=== PATIENT | female | born 1980 | race Caucasian/White ===

== ENCOUNTER 2017-01-20 14:34 | Emergency (ER) | payer BC ==
[2017-01-20 15:15] VITALS: RESP 16
--- NOTE | 2017-01-20 15:23 | UCPHY ---
H & P Patient Type: New Smoking Status: Former smoker Time Seen by Provider: 01/20/17 15:01 HPI/ROS: CHIEF COMPLAINT: Right flank and right upper quadrant pain HISTORY OF PRESENT ILLNESS: 37-year-old female with no thromboembolic disorder history complaining of 3 weeks of vague right back and flank pain, sometimes reproducible with range of motion sometimes not. Atraumatic. No rash or vesicles. Partially resolved with ibuprofen. In the past 1-2 days she has developed new onset right upper quadrant pain and dyspnea. No cough. No chest pain. No syncope or near syncope. No cough. No URI symptoms. No peripheral edema. She is a a nonsmoker, currently on Clomid fertility medication, unsure whether she is or not. She is attempting to get . PRIMARY CARE PROVIDER: no PCP, followed by an OBGYN at [facility] REVIEW OF SYSTEMS: A ten point review of systems was performed and is negative with the exception of the items mentioned in the HPI PAST MEDICAL & SURGICAL HISTORY: SOCIAL HISTORY: nonsmoker PHYSICAL EXAM (Prior to examination, patient consented to physical exam, hands were washed and my usual and customary physical exam procedures followed) 1) GENERAL: Well-developed, well-nourished, alert and oriented. Appears to be in no acute distress. 2) HEAD: Normocephalic, atraumatic 3) HEENT: Pupils equal, round, reactive to light bilaterally. Sclera anicteric. Nasopharynx, oropharynx, clear, no lesions. Ears bilaterally with normal tympanic membranes. 4) NECK: Full range of motion, no meningeal signs. 5) LUNGS: Clear auscultation bilaterally, no wheezes, no rhonchi, no retractions. 6) HEART: Regular rate and rhythm, no murmur, no heave, no gallop. 7) ABDOMEN: No guarding, positive McBurney's, negative Vences's, negative Rovsing's, negative peritoneal sign, 8) MUSCULOSKELETAL: Moving all extremities, no focal areas of tenderness, no obvious trauma. No peripheral edema or discoloration. 9) BACK: No CVA tenderness, no midline vertebral tenderness, no fluctuance, no step-off, no obvious trauma, no visual or palpable abnormality. 10) SKIN: No rash, no petechiae. 11) Psychiatric: Patient is oriented X 3, there is no agitation. DIFFERENTIAL DIAGNOSIS: in no particular include but limited to pyelonephritis , nephrolithiasis, cholecystitis, pulmonary embolus, lower lobe pneumonia (Rayne Love) Constitutional: Initial Vital Signs Temperature (C) 36.6 C 01/20/17 15:09 Heart Rate 90 01/20/17 15:09 Respiratory Rate 16 01/20/17 15:09 Blood Pressure 150/92 H 01/20/17 15:09 O2 Sat (%) 95 01/20/17 15:09 O2 Delivery Mode Room Air Allergies/Adverse Reactions: No Known Allergies Allergy (Unverified 01/20/17 15:15) Home Medications: Medication Instructions Recorded Clomid 01/20/17 Methocarbamol [Robaxin 750 mg (*)] 750 - 1,500 mg PO QID PRN #30 tab 01/20/17 MDM/Departure - MDM Diagnostics: Chest x-ray: Normal exception mild increased AP diameter by my interpretation A review of her labs reveals contaminated urine specimen, normal chemistries and lipase common negative HCG and minimal leukocytosis. (Con Leonardo) ED Course/Re-evaluation: Care turned over to Dr. Con Leonardo at 3:30 p.m. (Rayne Love) On my examination at 4:40 p.m. after results were back the patient has some right paraspinous lumbar tenderness that it also has right upper quadrant tenderness. She has negative straight leg raise bilaterally. She is able to bend for without much difficulty back extension causes more pain in the right low back. Neuro exam reveals no sensory or motor deficits in lower extremities. She maintains 2+ symmetric patellar DTRs bilaterally. Discussion: I think that this patient's back pain is musculoskeletal in etiology possible disc herniation without significant radiculopathy or low back strain. I counseled her regarding this. Because the right upper quadrant pain is unclear. In may be a spinal nerve this radiating around anteriorly. We ruled out hepatitis, cholecystitis pancreatitis with normal chemistries and LFTs making this very unlikely. No other concerning findings on her presentation currently. She is on Clomid and wonders if she may have ovarian cyst. I think this is unlikely unlikely source of pain given that her discomfort is in the right upper quadrant but encouraged her to follow up with her OBGYN. (Con Leonardo) - Depart Disposition: Home, Routine, Self-Care Clinical Impression: Right upper quadrant abdominal pain Low back pain Qualifiers: Chronicity: acute Back pain laterality: right Sciatica presence: without sciatica Qualified Code(s): M54.5 - Low back pain Condition: Good Instructions: Low Back Strain (ED) Additional Instructions: DX: Low back pain 2. Her right upper belly pain Plan: Ibuprofen 400-600 mg per 6 hours regularly for the next week then as needed. Methocarbamol muscle relaxants as needed. Tylenol in addition as needed for pain. No driving alcohol or work on methocarbamol Starts daily stretches prior to taking muscle relaxants and Vicodin in the morning. 3-5 minutes each of: "Butterfly stretch," "Sphinx stretch", "pigeon stretch", and hamstring stretch. Avoid lifting more than 5-10 pounds until symptoms improve. Call your primary care physician for a followup appointment in 3-7 days. Go to the emergency department for worsening of your symptoms despite the treatment plan. Prescriptions: Methocarbamol [Robaxin 750 mg (*)] 750 - 1,500 mg PO QID PRN #30 tab PRN Reason: Muscle Spasms Referrals: NONE *PRIMARY CARE P,. [Primary Care Provider] - As per Instructions - PQRS PQRS Measurement: n/a (Rayne Love)
[2017-01-20 15:28] LABS: COLOR YELLOW; LEUKOCYTE ESTERASE,URINE NEGATIVE (NEGATIVE); NITRITE,URINE NEGATIVE (NEGATIVE); PH,URINE 5.5 (5.0-7.5)
[2017-01-20 15:44] LABS: BACTERIA 2+ /hpf (NONE SEEN); MUCUS 3+ /lpf (NONE-1+); RBC,URINE NONE SEEN /hpf (0-3)
[2017-01-20 16:19] LABS: % IMMATURE GRANULYOCYTES 0.3 % (0.0-1.1); ABSOLUTE IMMATURE GRANULOCYTES 0.03 10^3/uL (0.00-0.10); ADD DIFF? NO; ADD MORPH? NO; ADD SCAN? NO; ATYPICAL LYMPHOCYTE FLAG 10 (0-99); FRAGMENT RBC FLAG 0 (0-99); HEMATOCRIT 43.7 % (38.0-47.0); LEFT SHIFT FLG 0 (0-99); LIPEMIA HEMOLYSIS FLAG 90 (0-99); MEAN CELL HEMOGLOBIN 28.9 pg (27.9-34.1); MEAN CELL HEMOGLOBIN CONCENTR. 34.3 g/dL (32.4-36.7); MEAN CELL VOLUME 84.2 fL (81.5-99.8); MEAN PLATELET VOLUME 9.6 fL (8.7-11.7); PLATELET CLUMPS FLAG 0 (0-99); PLATELET COUNT 289 10^3/uL (150-400); RED BLOOD CELL COUNT 5.19 10^6/uL (4.18-5.33); RED CELL DISTRIBUTION WIDTH 12.5 % (11.5-15.2)
[2017-01-20 16:32] LABS: ALANINE AMINOTRANSFERASE 49 IU/L (9-52); ALBUMIN 4.2 g/dL (3.5-5.0); ALKALINE PHOSPHATASE 73 IU/L (38-126); ANION GAP 16 mEq/L (8-16); ASPARTATE AMINOTRANSFERASE 25 IU/L (14-46); BILIRUBIN,TOTAL 0.5 mg/dL (0.1-1.4); BILIRUBIN-CONJUGATED 0.3 mg/dL (0.0-0.5); BILIRUBIN-UNCONJUGATED 0.2 mg/dL (0.0-1.1); CALCIUM 9.1 mg/dL (8.5-10.4); CARBON DIOXIDE 22 mEq/l (22-31); CHLORIDE 103 mEq/L (97-110); CREATININE 0.5 mg/dL (0.6-1.0); GLOMERULAR FILTRATION RATE > 60; GLUCOSE 80 mg/dL (70-100); SODIUM 141 mEq/L (134-144); TOTAL PROTEIN 8.4 g/dL (6.3-8.2)
[2017-01-20 17:22] VITALS: BP 134/89; PULSE 80; TEMP 98.8; O2SAT 94
== END 2017-01-20 17:23 | disposition home or self-care (01) ==
LOC: CED 14:34
DX: R10.11 Right upper quadrant pain (principal); M54.5 Low back pain
CPT/HCPCS: 71020-PO; 80048-PO; 80076-PO; 81003-PO; 81015-PO; 81025-PO; 83690-PO; 84703-PO; 85025-PO; 99203-PO; G0463-PO

== ENCOUNTER → 2018-01-05 | Outpatient (CLI) | payer OTHER | LOC: FIMAGING 14:06 | PROVIDERS: ATTEND Advanced Practice Midwife | DX: O09.521 Supervision of elderly multigravida, first trimester (principal); Z3A.12 12 weeks gestation of pregnancy ==

== ENCOUNTER 2018-07-12 19:11 | Observation (INO) | payer OTHER | END 2018-07-12 20:00 | disposition home or self-care (01) | LOC: FLD 19:11 | PROVIDERS: ADMIT Advanced Practice Midwife; ATTEND Advanced Practice Midwife | DX: Z34.83 Encounter for supervision of other normal pregnancy, third trimester (principal); Z3A.39 39 weeks gestation of pregnancy | CPT/HCPCS: 59025; G0378 ==

== ENCOUNTER 2018-07-13 03:01 | Inpatient (IN) | payer OTHER ==
[2018-07-13] MEDS ORDERED: EPSOM SALT 454 GM TP PRN (03:22)
[2018-07-13] MEDS ORDERED: LIDOCAINE 1% 300 MG/30 ML SDV SC PRN (03:22)
[2018-07-13] MEDS ORDERED: OXYTOCIN/RINGERS LACTATE 1,000 ML IV PRN (03:22)
[2018-07-13] MEDS ORDERED: MISOPROSTOL 200 MCG TAB PR PRN (03:22)
[2018-07-13] MEDS ORDERED: LR 1,000 ML IV PRN (03:22)
[2018-07-13] MEDS ORDERED: IBUPROFEN 600 MG TAB PO PRN (03:22)
[2018-07-13] MEDS ORDERED: TERBUTALINE SULFATE 1 MG/ML VIAL IV PRN (03:22)
[2018-07-13] MEDS ORDERED: OLIVE OIL 118 ML BTL MISC PRN (03:22)
[2018-07-13] MEDS ORDERED: OLIVE OIL 118 ML BTL ONE (07:25)
[2018-07-13] MEDS ORDERED: LIDOCAINE 1% 300 MG/30 ML SDV ONE (07:25)
[2018-07-13] MEDS ORDERED: MISOPROSTOL 200 MCG TAB ONE (07:26)
[2018-07-13] MEDS ORDERED: TERBUTALINE SULFATE 1 MG/ML VIAL ONE (07:26)
[2018-07-13] MEDS ORDERED: OXYTOCIN 10 UNIT/ML VIAL ONE (07:26)
[2018-07-13] MEDS ORDERED: AMMONIA AROMATIC 1 EACH AMP IH ONE (07:26)
[2018-07-13 07:38] LABS: PLATELET COUNT 245 10^3/uL (150-400)
--- NOTE | 2018-07-13 07:50 | OBPROG ---
Labor Progress Note Assessment/Plan: Assessment: 1) Term IUP at 39 weeks. 2) Plan: 07/13/18 07:50 Objective: 07/13/18 07:00 Oxytocin Orders Assessment - Pre-Induction/Augmentation Assessment Gestational Age: 39 week(s) and 1 day(s)
--- NOTE | 2018-07-13 08:04 | PDGENHP ---
History and Physical History and Physical: CARE: [facility] HPI: Patient is a 38 yo G 3 P 1 @ 39 weeks 1 day that presents to L&D with complaints of PROM on 07/12 at 0700. EDC: 07/19/18 which is based on LMP: 10/12/17 which is known and consistent with Ultrasound at 6 weeks. Her is complicated by: AMA, Abnormal 1 hr GTT at 10 weeks. 1 hour at 28 weeks 134. Review of Systems: Constitutional: Denies any fever, chills, or fatigue HEENT: denies any visual changes, difficulty swallowing, hearing loss Cardiovascular: Denies any chest pain, palpitations, leg swelling Respiratory: denies any cough, wheezing, or shortness of breathe GI: Denies any nausea, vomiting, diarrhea, constipation : denies any dysuria, urgency, frequency, vaginal bleeding Musculoskeletal: denies any muscle or bone pain Skin: denies any rashes Neuro: denies any headache, seizures, lightheadedness, dizziness, or loss of consciousness Psychiatric: denies any depression, anxiety, or SI/HI thoughts HISTORY: Previous OB history: 2014 6#9oz at 39w3d. Social history: Family history: htn, mother, thyroid mother Past medical history: hx IVF, egg retrieval Past surgical history: denies Medications: PNV, folic acid Allergies (list reaction): NKDA LABS: Rh: A+ ABS: Pos, not clinically significant Rubella: low Immune HbsAg: NR HIV: NR VDRL: NR 1hr: failed early 1 hour, 28 1 hour = 134 GC: Neg Chlamydia: Neg Pap: Normal GBS: neg BMI: (prepreg) 31.6 PHYSICAL EXAM: Constitutional: WN, A&Ox3 HEENT: normocephalic atraumatic, supple Heart: RRR, no murmur Chest: CTA-B Skin: warm, dry, intact Abdomen: Soft, nontender, gravid SVE: 2/80 at 0300 per RN Extremities: trace edema, negative homans sign Neuro: grossly normal Psych: normal affect assessment: FHT baseline 140 +accels, no decels, moderate variability Contractions: toco q 5, mild Assessment: 1) 38 yo G 3 P 1 with IUP@ 39.1 2) PROM 24 hours ago, no labor 3) GBS neg 4) Cat 1 FHR tracing Plan: 1) Admit to L&D 2) begin pitocin augmentation
[2018-07-13] MEDS ORDERED: LR 500 ML IV PRN (08:24)
[2018-07-13] MEDS ORDERED: OXYTOCIN/RINGERS LACTATE 500 ML IV SCH (08:30)
[2018-07-13] MEDS ORDERED: fentaNYL 100 MCG/2 ML INJ ONE (10:56)
[2018-07-13] MEDS ORDERED: fentaNYL 2MCG/ML/BUP 0.1% RTU 100 ML BAG EP ONE (10:57)
[2018-07-13] MEDS ORDERED: BUPIVACAINE 0.25% 30 ML SDV ONE (10:57)
--- NOTE | 2018-07-13 11:20 | OBPROG ---
Labor Progress Note Assessment/Plan: Assessment: term IUP active labor Plan: epidural anesthesia 07/13/18 11:17 Objective: 07/13/18 07:00 Patient ABO/Rh A POSITIVE 07/13/18 07:00 - SVE Dilation (cm): 6 Effacement (%): 90 Station: -2 Membranes: SROM Amniotic Fluid Color: Clear - Contraction Pattern Assessment Current Contraction Pattern: Regular CNM Assessment - Uterine Assessment Contraction Strength: Moderate Uterine Resting Tone: Palpates Soft Between Uterine Contractions Oxytocin Orders Assessment - Pre-Induction/Augmentation Assessment Gestational Age: 39 week(s) and 1 day(s) ICD10 Worksheet Patient Problems: Problems Problem Status Onset Labor without complication Acute Premature rupture of membranes (PROM) affecting second Acute - ICD10 Problem Qualifiers (1) Premature rupture of membranes (PROM) affecting second (2) Labor without complication
[2018-07-13] MEDS ORDERED: PHENYLEPHRINE HCL 100 MCG/ML SYR IVP PRN (11:56)
[2018-07-13] MEDS ORDERED: ONDANSETRON 4 MG/2 ML VIAL IVP PRN (11:56)
[2018-07-13] MEDS ORDERED: LR 500 ML IV SCH (12:00)
[2018-07-13] MEDS ORDERED: fentaNYL 2MCG/ML/BUP 0.1% RTU 100 ML EP SCH (12:00)
--- NOTE | 2018-07-13 12:01 | PREANESOB ---
Obstetric Pre-Anesthesia Info - General Info Proposed Procedure: Labor and delivery with pitocin. : 3 Para: 1 TOI: 07/19/18 Gestational Age: 39 week(s) and 1 day(s) - Info Status: Full Term Monitors: External FHR Baseline (bpm): 150 FHR Pattern: Reassuring - Labor Status Cervical Dilation per last OB SVE: 6 Station per last OB SVE: -2 Amniotic Fluid Color: Clear Pitocin: In Use Indications for Labor Analgesia: Induction of Labor, Pain Control Labor Epidural: Proposed Anesthesia ROS: Prior labor epidural and jaw surgery with general anesthesia. Allergies/Adverse Reactions: Allergy/AdvReac Type Severity Reaction Status Date / Time No Known Allergies Allergy Verified 07/13/18 10:35 Home Medications: Medication Instructions Recorded Vit27&Calcium/Iron/FA 1 tab PO DAILY 07/13/18 [] Visit Medications: Discontinued Medications Generic Name Dose Route Start Last Admin Trade Name Freq PRN Reason Stop Dose Admin Ammonia (Aromatic Spirit) Confirm 07/13/18 07:26 Ammonia Aromatic Administered 07/13/18 07:27 Dose 1 each IH .STK-MED ONE Bupivacaine HCl Confirm 07/13/18 10:57 Sensorcaine 0.25% Sdv Administered 07/13/18 10:58 Dose 30 ml .ROUTE .STK-MED ONE Fentanyl Confirm 07/13/18 10:56 Sublimaze Administered 07/13/18 10:57 Dose 100 mcg .ROUTE .STK-MED ONE Fentanyl/Bupivacaine HCl Confirm 07/13/18 10:57 Fentanyl/Bupivacaine/Ns 2 Mcg/Ml 0.1% (Premix Administered 07/13/18 10:58 Dose 100 ml EP .STK-MED ONE Lactated Ringer's 1,000 mls @ 0 mls/hr 07/13/18 03:22 07/13/18 08:50 Lr IV 07/14/18 03:21 1,000 mls PRN PRN Administration SEE PROTOCOL CONDITIONS Protocol Per Protocol Oxytocin/Lactated Ringer's 1,000 mls @ 125 mls/hr 07/13/18 03:22 Pitocin 20 Units/Lr (Premix) IV PRN PRN Post bleeding Lactated Ringer's 500 mls @ 500 mls/hr 07/13/18 08:24 Lr IV 07/14/18 08:24 PRN PRN Maternal Hypotension Oxytocin/Lactated Ringer's 500 mls @ 0 mls/hr 07/13/18 08:30 07/13/18 08:50 Pitocin 30 Units/Lr (Premix) IV 01/09/19 08:29 500 mls CONT LILIAM Administration Protocol Per Protocol Ibuprofen 600 mg 07/13/18 03:22 Motrin PO ONCE PRN post , pain Lidocaine HCl 300 mg 07/13/18 03:22 Lidocaine Hcl 1% SC 01/09/19 03:21 ONCE PRN episiotomy Lidocaine HCl Confirm 07/13/18 07:25 Lidocaine Hcl 1% Administered 07/13/18 07:26 Dose 300 mg .ROUTE .STK-MED ONE Magnesium Sulfate 454 gm 07/13/18 03:22 Epsom Salt TP 01/09/19 03:21 Q1H PRN perineal discomfort Misoprostol 800 - 1,000 mcg 07/13/18 03:22 Cytotec [place] ONCE PRN Vaginal Atony/Bleeding Misoprostol Confirm 07/13/18 07:26 Cytotec Administered 07/13/18 07:27 Dose 1,000 mcg .ROUTE .STK-MED ONE [place] Oil 118 ml 07/13/18 03:22 Sweet Oil MISC 01/09/19 03:21 ONCE PRN perineal massage [place] Oil Confirm 07/13/18 07:25 Sweet Oil Administered 07/13/18 07:26 Dose 118 ml .ROUTE .STK-MED ONE Oxytocin Confirm 07/13/18 07:26 Pitocin Administered 07/13/18 07:27 Dose 40 unit .ROUTE .STK-MED ONE Terbutaline Sulfate 0.25 mg 07/13/18 03:22 Brethine IV 01/09/19 03:21 ONCE PRN Tachysystole Terbutaline Sulfate Confirm 07/13/18 07:26 Brethine Administered 07/13/18 07:27 Dose 1 mg .ROUTE .STK-MED ONE - Anesthesia History Response to Local Anesthetics: Normal Anesthesia & Operative History: No Prior Problems Family Anesthesia History: Negative - Social History Substance Use/Abuse: Denies - Vital Signs Blood Pressure: 124/80 Heart Rate: 65 Height/Weight (Nursing): Height 162.56 cm Weight 90.718 kg - Focused Exam Neck exam: FROM Mallampati Score: Class 2 Mouth exam: normal dental/mouth exam Pulmonary: no respiratory distress Cardiovascular: regular rate and rhythym Labs: 07/13/18 07:00 Patient ABO/Rh A POSITIVE 07/13/18 07:00 - Plan Anesthetic Plan: CSE Consent Signed and on Chart: Yes Patient/Guardian Understands and Agrees to Plan: Yes Urgent/Emergent Case: Rachid perez completed preop but documented later for safe timely pt care
--- NOTE | 2018-07-13 12:03 | POSTANESTH ---
Post Anesthetic Evaluation Cardiovascular Status: Normal, Stable, Similar to Pre-Op Cond Respiratory Status: Normal, Stable, Similar to Pre-op Cond. Level of Consciousness/Mental Status: Can Participate in Eval, Alert and Oriented Pain Control: Adequate, Prn Tx Ordered Nausea/Vomiting Control: Adequate, Prn Tx Ordered Complications Possibly Related to Anesthesia: None Noted
[2018-07-13] MEDS ORDERED: HYDROCORTISONE 0.5% CREAM TP PRN (16:48)
[2018-07-13] MEDS ORDERED: SIMETHICONE 80 MG TAB CHEW PO PRN (16:48)
--- NOTE | 2018-07-13 16:48 | OBDEL ---
Info Type: Vaginal Presentation at Delivery: Vertex L&D Analgesia/Anesthesia Type: Epidural GBS+: No Intrapartum Medications: Generic Name Dose Route Start Last Admin Trade Name Freq PRN Reason Stop Dose Admin Lactated Ringer's 1,000 mls @ 0 mls/hr 07/13/18 03:22 07/13/18 08:50 Lr IV 07/14/18 03:21 1,000 mls PRN PRN Administration SEE PROTOCOL CONDITIONS Protocol Per Protocol Oxytocin/Lactated Ringer's 500 mls @ 0 mls/hr 07/13/18 08:30 07/13/18 08:50 Pitocin 30 Units/Lr (Premix) IV 01/09/19 08:29 500 mls CONT LILIAM Administration Protocol Per Protocol Indications for Delivery: SROM Vaginal Delivery - Delivery Provider Delivery Physician/CNM: Melita Velasco - Labor and Delivery Onset of Contractions Date: 07/12/18 Onset of Contractions Time: 20:00 Onset of Contractions Type: Augmented Rupture of Membranes Date: 07/12/18 Rupture of Membranes Time: 07:00 Rupture of Membranes Type: Spontaneous Amniotic Fluid Color: Clear Dilation Complete Date: 07/13/18 Dilation Complete Time: 15:40 Placenta Delivery Date: 07/13/18 Placenta Delivery Time: 16:34 Total Hours of Labor: 20 Vaginal Sponge Count Correct: Yes Vaginal Needle Count Correct: Yes Vaginal Sweep Performed: Yes EBL: 200 - Medications Labor Augmentation/Induction Methods Used: Pitocin [place] Data TOI: 07/19/18 Gestational Age: 39 week(s) and 1 day(s) Marquez Delivery Date: 07/13/18 Delivery Time: 16:24 Sex of : Male Score (1 Min): 8 Score (5 Min): 9 ICD10 Worksheet Patient Problems: Problems Problem Status Onset Labor without complication Acute Premature rupture of membranes (PROM) affecting second Acute
[2018-07-13] MEDS: DOCUSATE SODIUM 100 MG CAP PO PRN (19:30)
[2018-07-13] MEDS: IBUPROFEN 600 MG TAB PO PRN (19:30)
[2018-07-13] MEDS: ACETAMINOPHEN 325 MG TAB PO SCH (22:54)
[2018-07-14] MEDS: IBUPROFEN 600 MG TAB PO PRN ×2 (01:31→14:31)
[2018-07-14] MEDS: ACETAMINOPHEN 325 MG TAB PO SCH ×3 (02:00→18:25)
[2018-07-14] MEDS: DOCUSATE SODIUM 100 MG CAP PO PRN (08:21)
--- NOTE | 2018-07-14 08:51 | OBPP ---
Progress Note Assessment/Plan: Assessment: Day 1 PP Establishing Afterpains Plan: Continue scheduled ibuprofen and tylenol. Heat pad as needed for afterpain. Discharge home tomorrow. 07/14/18 08:50 Subjective/ Course: 07/14/18 08:48 Doing well this morning. Having after pains not controlled with just Ibuprofen. Added Tylenol dose this morning. Baby is nursing well. Bleeding minimal. Plans to discharge home tomorrow Objective: 07/13/18 07:00 Patient ABO/Rh A POSITIVE 07/13/18 07:00 Temp Pulse Resp BP Pulse Ox 36.5 C 80 16 110/68 95 07/13/18 22:00 07/13/18 22:00 07/13/18 22:00 07/13/18 22:00 07/13/18 18:46 Breasts: Nipples intact bilaterally, breasts soft +2 LE edema, neg dario's Uterine Position/Fundal Height: At Umbilicus
[2018-07-14 09:33] VITALS: BP 113/62
--- NOTE | 2018-07-14 17:14 | OBGCSDC ---
General Delivery Information - General Info : 3 Para: 2 Abortions: 1 Type: Vaginal L&D Analgesia/Anesthesia Type: Epidural Admission Date: 07/13/18 Labs: Patient ABO/Rh A POSITIVE 07/13/18 07:00 Hct 36.2 % (38.0-47.0) L 07/13/18 07:00 - Hospital Course : 07/14/18 08:48 Doing well this morning. Having after pains not controlled with just Ibuprofen. Added Tylenol dose this morning. Baby is nursing well. Bleeding minimal. Plans to discharge home tomorrow Vaginal - Delivery Provider Delivery Physician/CNM: Melita Velasco - Diagnosis Labor: Augmented Rupture of Membranes Type: Spontaneous Amniotic Fluid Color: Clear - Delivery EBL: 200 [place] Data TOI: 07/19/18 Gestational Age: 39 week(s) and 2 day(s) Marquez Delivery Date: 07/13/18 Delivery Time: 16:24 Sex of : Male Weight (gm): 3830 g Score (1 Min): 8 Score (5 Min): 9 Discharge Information - Discharge Information Instruction/Follow Up: Two Weeks, Four Weeks, Six Weeks
== END 2018-07-14 18:25 | disposition home or self-care (01) | DRG 775 ==
LOC: FLD 03:01 → UNDODISIN 03:30 → FOB 18:40
PROVIDERS: ADMIT Advanced Practice Midwife; ATTEND Advanced Practice Midwife
PROC: 10E0XZZ Delivery of Products of Conception, External Approach (ICD-10-PCS; principal; 2018-07-13)
DX: O42.12 Full-term premature rupture of membranes, onset of labor more than 24 hours following rupture (principal); Z3A.39 39 weeks gestation of pregnancy; Z37.0 Single live birth
CPT/HCPCS: J2590; J3010; J3105